=== PATIENT | female | born 1965 | race Caucasian/White ===

== ENCOUNTER 2020-01-12 13:51 | Emergency (ER) | payer BC | END 2020-01-12 14:44 | disposition home or self-care (01) | LOC: JVIRT 13:51 | DX: U07.1 COVID-19 (principal) | CPT/HCPCS: C9803; G2012-GT; U0003 ==

== ENCOUNTER 2020-07-28 07:41 | Day surgery (SDC) | payer BC ==
[2020-07-26 08:25] VITALS: BMI 28.1
[2020-07-28] MEDS ORDERED: PROPOFOL 20 ML ONE ×3 (08:04)
[2020-07-28] MEDS ORDERED: LIDOCAINE HCL/PF 2% SDV 5ML VIAL ONE (08:04)
[2020-07-28 09:28] VITALS: TEMP 97.8
[2020-07-28 09:57] VITALS: BP 125/64; PULSE 64
== END 2020-07-28 10:30 | disposition home or self-care (01) ==
LOC: FASU-ENDO 07:41
PROVIDERS: ATTEND Internal Medicine Gastroenterology
PROC: 0DB98ZX Excision of Duodenum, Via Natural or Artificial Opening Endoscopic, Diagnostic (ICD-10-PCS; 2020-07-28)
PROC: 0DB68ZX Excision of Stomach, Via Natural or Artificial Opening Endoscopic, Diagnostic (ICD-10-PCS; 2020-07-28)
PROC: 0DBN8ZX Excision of Sigmoid Colon, Via Natural or Artificial Opening Endoscopic, Diagnostic (ICD-10-PCS; principal; 2020-07-28 08:53)
DX: Z12.11 Encounter for screening for malignant neoplasm of colon (principal); D12.5 Benign neoplasm of sigmoid colon; K29.50 Unspecified chronic gastritis without bleeding; B96.81 Helicobacter pylori [H. pylori] as the cause of diseases classified elsewhere; R12 Heartburn

== ENCOUNTER 2020-11-30 04:15 | Day surgery (SDC) | payer BC ==
[2020-11-26 13:11] VITALS: BMI 28.1
[2020-11-30] MEDS ORDERED: MIDAZOLAM HCL 2 MG/2 ML SINGLE DOSE VIAL ONE (08:46)
[2020-11-30] MEDS ORDERED: PROPOFOL 20 ML ONE ×2 (08:46)
[2020-11-30] MEDS ORDERED: ONDANSETRON 4 MG/2 ML VIAL IVPUSH PRN ×2 (09:16→10:22)
[2020-11-30] MEDS ORDERED: oxyCODONE HCL 5 MG TABLET PO PRN ×3 (09:16→10:22)
[2020-11-30] MEDS ORDERED: ceFAZolin 2 GRAM PREMIX BAG IVPB ONE (09:24)
[2020-11-30] MEDS ORDERED: LACTATED RINGERS SOLUTION 1,000 ML IV SCH (09:30)
[2020-11-30] MEDS ORDERED: IBUPROFEN 600 MG TABLET (FP) PO PRN (10:22)
[2020-11-30] MEDS ORDERED: IBUPROFEN 800 MG/8 ML IJ IVPB PRN (10:22)
[2020-11-30] MEDS ORDERED: ELECTROLYTE-148 SOLN 1,000 ML IV SCH (10:30)
[2020-11-30 14:19] VITALS: BP 112/75; PULSE 61; TEMP 96.9
== END 2020-11-30 12:20 | disposition home or self-care (01) ==
LOC: JASU-SURG 04:15
PROVIDERS: ATTEND Obstetrics & Gynecology
PROC: 0UDB8ZX Extraction of Endometrium, Via Natural or Artificial Opening Endoscopic, Diagnostic (ICD-10-PCS; principal; 2020-11-30 09:00)
DX: N84.0 Polyp of corpus uteri (principal); N88.2 Stricture and stenosis of cervix uteri; Z53.8 Procedure and treatment not carried out for other reasons
CPT/HCPCS: 88305-TC; 94760